=== PATIENT | male | born 1960 | race Caucasian/White ===

== ENCOUNTER 2022-01-16 11:13 | Observation (INO) ==
--- NOTE | 2022-01-14 09:21 | Anesthesiology Consultation ---
Date of Service January 14, 2022 Assessment & Plan (1) Encounter for pre-operative examination: Plan - s/p left tonsillectomy, DL with biopsy, bronchoscopy, EGD 01/10/22 [facility]: Grade 1 view with ant pressure, MAC 3, ETT 7.5. No postop issues per anesthesia progress note. - ENT 01/01/22 [place]: "...squamous cell carcinoma of lymph node...Firm fixed 3 cm level 2 node. Will need panendoscopy including left tonsillectomy. Cyst at the base of the left tonsil..." - COVID screening: Per assessment manager on 01/14/2022: Travel screen returned from [place] 12/28, no known COVID-19 positive contacts or current COVID-19 related symptoms in past 2 weeks. Pt vaccinated. Surgeon arranging preop COVID testing, scheduled 01/14/2022. Awaiting results. Chart Review Chart Review: Acceptable Risk for Surgery and Patient NOT seen in Pre Admission Testing History Surgery Operation Date: 01/16/22 12:30 Proposed Procedures p Left Radical Neck Dissection - Misty Cody MD Height/Weight Height: 5 ft 4.5 in Weight: 62.142 kg Allergies Allergy/AdvReac Type Severity Reaction Status Date / Time No Known Allergies Allergy Verified 01/14/22 08:15 Medications Home Medications Medication Instructions Recorded Confirmed Last Taken rosuvastatin 5 mg tablet (Crestor) 5 mg PO HS 07/02/21 01/14/22 01/09/22 06:00 acetaminophen 500 mg tablet 500 - 1,000 mg PO TID PRN Pain 01/14/22 01/14/22 Unknown Past Medical History Medical History Dyslipidemia Squamous cell carcinoma of lymph node Firm fixed 3 cm level 2 node Tonsillar cyst base of left tonsil Past Family History Family History Father , 70 yrs old. Stroke Mother Heart disease Other No family history of adverse response to anesthesia No family history of bleeding disorder Denies family history of Ovarian cancer Prostate cancer Myocardial infarction Breast cancer Colorectal cancer Cancer Hypertension Asthma Past Surgical History Surgical History (Updated 01/14/22 @ 09:17 by Garima Muir PA-C) History of bronchoscopy (01/10/22) Grade 1 view with ant pressure, MAC 3, ETT 7.5. No postop issues per anesthesia progress note. History of colonoscopy History of laryngoscopy (01/10/22) History of strabismus surgery right eye Hx of tonsillectomy (01/10/22) left tonsillectomy: Grade 1 view with ant pressure, MAC 3, ETT 7.5. STOP BANG Total 2 Social History Smoking Status: Never smoker Do You Dip or Chew Tobacco: No Hx Alcohol Use: Yes Alcohol type: beer alcohol intake frequency: a few times a week Hx Substance Use: No substance use type: does not use Lab Results Anesthesia Preop Results Results Anesthesia Widget: WBC 5.88 K/ul (4.8-10.8) 12/04/21 Hgb 15.0 g/dl (14.0-18.0) 12/04/21 Hct 43.4 % (40.1-51.0) 12/04/21 Plt 212 K/uL (130-400) 12/04/21 Na 137 mmol/L (136-145) 12/04/21 K 3.9 mmol/L (3.5-5.1) 12/04/21 Cl 102 mmol/L (98-107) 12/04/21 CO2 26 mmol/L (21-32) 12/04/21 BUN 16 mg/dl (6-23) 12/04/21 Creat 0.93 mg/dl (0.6-1.4) 12/04/21 Glucose Level 98 mg/dl (70-99(Fasting)) 12/04/21 Testing Electrocardiogram Date: 01/10/22 NSR, rate 80 bpm Other Testing Head/neck ultrasound 12/11/21 IMPRESSION: The patient's questioned palpable abnormality within the upper left neck appears to correspond to a 2.7 x 2.5 x 1.6 cm pathologically enlarged lymph node. Ultrasound-guided fine-needle aspiration recommended for further evaluation
--- NOTE | 2022-01-14 16:17 | History & Physical Report ---
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 For left functional neck dissection. Allergies Allergy/AdvReac Type Severity Reaction Status Date / Time No Known Allergies Allergy Verified 01/14/22 08:15 Home Medications Medication Instructions Recorded Confirmed Type rosuvastatin 5 mg tablet (Crestor) 5 mg PO HS 07/02/21 01/14/22 History acetaminophen 500 mg tablet 500 - 1,000 mg PO TID PRN Pain 01/14/22 01/14/22 History Past Med/Surg History Medical History Dyslipidemia Squamous cell carcinoma of lymph node Firm fixed 3 cm level 2 node Tonsillar cyst base of left tonsil Surgical History History of bronchoscopy (01/10/22) Grade 1 view with ant pressure, MAC 3, ETT 7.5. No postop issues per anesthesia progress note. History of colonoscopy History of laryngoscopy (01/10/22) History of strabismus surgery right eye Hx of tonsillectomy (01/10/22) left tonsillectomy: Grade 1 view with ant pressure, MAC 3, ETT 7.5. Family History Father , 70 yrs old. Stroke Mother Heart disease Other No family history of adverse response to anesthesia No family history of bleeding disorder Denies family history of Ovarian cancer Prostate cancer Myocardial infarction Breast cancer Colorectal cancer Cancer Hypertension Asthma Social History Smoking Status: Never smoker Second Hand Exposure: No; Do You Dip or Chew Tobacco: No; Tobacco Cessation Education Requested by Patient: No Hx Alcohol Use: Yes Alcohol type: beer Alcohol Intake Frequency: 4 or More x per/Week Alcohol Intake Frequency Comment: "moderation" Hx Substance Use: No Preferred Language: Bengali Communication Ability: Effective Visual Impairment: No Limitations Hearing Ability: Normal Radiator Mechanic Required: No Beliefs That Will Affect Care: None marital status: Current Living Situation: Spouse current occupational status: employed current occupation: Self employed - [employer] How many Children do You have: 0 Other Information That Helps Us Care for You: No Feels Safe at Home: Yes Safety Concerns: Feels Safe At This Time Childhood Exposure to Second-Hand Smoke: Yes Dental Care, Regularly: Yes Physical Activity Frequency: 3-4 Times per Week Seatbelt Use: always Sunscreen Use: Yes Assistive Devices: None Physical Exam Constitutional: WD/WN, vitals as above Eyes: PERRL, conjunctivae normal, anicteric sclerae ENMT: external ear and nose normal, oropharynx normal Throat: + tonsils absent Neck: 3 cm firm left neck node level 2 Respiratory: normal respiratory effort, lungs clear to auscultation Cardiovascular: RRR, no murmur, no edema PG Care Time/CCT Total # of Minutes Spent Total Time Spent with Patient: Total time spent is greater than 50% in coordination of care (as documented) at patient's floor/unit and/or counseling patient: Coding Level of Care Code None Diagnoses Squamous cell carcinoma of lymph node C77.9
[~2022-01-16 11:13] MED LIST: LR 15ML/HR IV SCH
[2022-01-16] MEDS ORDERED: ATROPINE SULFATE 0.1 MG/ML 10ML SYR IV PRN (12:07)
[2022-01-16] MEDS ORDERED: fentaNYL citrate 100 MCG/2 ML VIAL IV PRN (12:07)
[2022-01-16] MEDS ORDERED: PROMETHAZINE HCL 12.5 MG in SODIUM CHLORIDE 0.9% 50 ML IV PRN (12:07)
[2022-01-16] MEDS ORDERED: ONDANSETRON INJ 2 MG/ML 2 ML VIAL IV PRN ×2 (12:07→15:32)
[2022-01-16] MEDS ORDERED: MIDAZOLAM HCL 1 MG/ML 2ML VIAL ONE (12:08)
[2022-01-16] MEDS ORDERED: fentaNYL citrate 100 MCG/2 ML VIAL ONE ×3 (12:08→13:44)
[2022-01-16] MEDS ORDERED: ceFAZolin 2000MG 2,000 MG/15 ML SYR IV ONE ×2 (12:15→16:15)
--- NOTE | 2022-01-16 12:42 | History & Physical Bridge Note ---
Date of Service January 16, 2022 History & Physical Bridge Note I have examined the patient, reviewed the History & Physical and in the interval since the performance of the History & Physical I have noted the following changes of clinical significance: no changes noted
[2022-01-16] MEDS ORDERED: LIDOCAINE 2%/EPINEPHRINE 1:100,000 20ML ONE (12:48)
[2022-01-16] MEDS ORDERED: BACITRACIN OINT 15 GM TUBE ONE (12:48)
[2022-01-16] MEDS ORDERED: PROPOFOL IV EMULSION 10 MG/ML 20 ML VIAL IV ONE (13:44)
[2022-01-16] MEDS ORDERED: LIDOCAINE 2% MPF LOCAL 5 ML VIAL INFIL ONE (13:44)
[2022-01-16] MEDS ORDERED: NEOSTIGMINE METHYLSULFATE 1 MG/ML 10ML VIAL ONE (13:44)
[2022-01-16] MEDS ORDERED: ROCURONIUM BROMIDE 10 MG/ML 5 ML VIAL IV ONE ×3 (13:44→14:47)
[2022-01-16] MEDS ORDERED: GLYCOPYRROLATE 0.2 MG/ML VIAL ONE (13:44)
[2022-01-16] MEDS ORDERED: DEXAMETHASONE SOD INJ 4 MG/ML VIAL ONE (13:44)
[2022-01-16] MEDS ORDERED: LARYING-O-JET KIT (LTA) ONE (13:44)
[2022-01-16] MEDS ORDERED: ONDANSETRON INJ 2 MG/ML 2 ML VIAL ONE (13:44)
[2022-01-16] MEDS ORDERED: SUGAMMADEX SODIUM 200 MG/2 ML VIAL IV ONE (14:30)
[2022-01-16] MEDS ORDERED: MoRPHine SULFATE 2 MG/ML CARP IV PRN (15:32)
[2022-01-16] MEDS ORDERED: oxyCODONE/ACETAMINOPHEN 5mg/325mg TAB PO PRN (15:32)
--- NOTE | 2022-01-16 15:41 | Operative Report ---
PG Post Operative Report Pre & Post Diagnosis Operation Date: 01/16/22 12:35 Pre-Op Diagnosis: Left Metastatic Tonsillar Carcinoma; Squamous Cell Carcinoma of Lymph Node Post-Op Diagnosis: Left Metastatic Tonsillar Carcinoma; Squamous Cell Carcinoma of Lymph Node I identified the patient and participated in the time-out.: Yes Procedure Operation Date: 01/16/22 12:35 Actual Procedures p Left Radical Neck Dissection(Left) - Misty Cody MD Surgeon Misty Cody MD Silk Screen Frame Assembler Dr. Og Estimated Blood Loss 100 Findings Consistent with Post-Op Diagnosis Large posterior neck node level 2 Specimens Contents left neck Anesthesia Type General Complications None Description of Procedure He was brought to the operating room, properly identified, prepped and draped in the usual sterile manner after general endotracheal anesthesia. Left neck was prepped with ChloraPrep he was positioned for left functional neck dissection. The incision lines were marked 4 cm below the angle of the mandible curving posterior superiorly to the mastoid. Vertical limb was anterior to the external jugular vein extending inferiorly to the clavicle. Incision line was injected with 2% Xylocaine with 1 20,000 strength epinephrine. Incision was made using a #10 blade down through the skin subcutaneous layer and platysma layer. Superior skin flap was elevated initially. Then the anterior skin flap and then the posterior skin flap. Self-retaining retractors were placed. Dissection was performed around the sternocleidomastoid peeling the fascia anteriorly and then the sternocleidomastoid and retracting it posteriorly to continue d issection down to the omohyoid where the dissection was continued anteriorly following the omohyoid anterior superiorly. Posteriorly the dissection was continued along the jugular vein and the carotid elevating the fascial envelope superiorly. Anteriorly the submandibular gland was dissected free. Posterior facial vein was clamped divided and tied using silk ties x2 as it crossed the submandibular gland x2. Branch of the facial artery was clamped divided and tied using silk ties. Lingual nerve superiorly was preserved. Dissection was continued down to the digastric muscle and digastric tendon freeing the submandibular gland from anteriorly and the inferior portion of the envelope up to the upper jugular nodes. At this point blunt sharp dissection was performed around the posterior neck node the node from the sternocleidomastoid muscle and mastoid tip posteriorly and then identifying the spinal accessory nerve posteriorly and the hypoglossal nerve medially, medial to the digastric tendon. These nerves were preserved while dissecting the entire mass off of the jugular vein and also off of the skull base. In this manner the left neck content was dissected free and marked and sent to pathology. Hemostasis was controlled using the silk ties and using the cautery. Sam-Carlisle drain was placed inferiorly. Incision was closed with interrupted Vicryl sutures on the platysma layer, interrupted Vicryl sutures on the subcutaneous and subcuticular layer, and johnny on the skin layer. The drain was sewn in place. He tolerated procedure well and was taken recovery area in satisfactory condition. Dr. Og was present and assisted and also was primary surgeon for portion of the procedure, and attending greater than 50% of the procedure. I attest to the content of the Intraoperative Record and any orders documented therein. Any exceptions are noted below.
[2022-01-16] MEDS: LABETALOL HCL IV 5 MG/ML 20ML IV PRN ×3 (15:49→16:12)
--- NOTE | 2022-01-16 16:19 | Anesthesiology Progress Note ---
Date of Service January 16, 2022 Anesthesia Post Procedure Vital Signs Vital Signs: Temp Pulse Resp BP BP Pulse Ox O2 Del Method 01/16/22 16:09 77 21 159/98 H 100 Room Air 01/16/22 16:00 36.2 C L 78 20 154/87 H 100 Room Air 01/16/22 15:50 89 14 161/96 H 100 Oxymask 01/16/22 15:40 79 13 176/91 H 100 Oxymask 01/16/22 15:30 80 14 167/100 H 100 Oxymask 01/16/22 15:21 36.4 C L 80 14 166/98 H 100 Oxymask 01/16/22 11:38 37.1 C 100 H 18 142/99 H 98 Room Air O2 Flow Rate 01/16/22 16:09 01/16/22 16:00 01/16/22 15:50 3 01/16/22 15:40 3 01/16/22 15:30 6 01/16/22 15:21 6 01/16/22 11:38 Transfer of Care Handoff Completed per policy Notes Mental Status: alert / awake / arousable Patient Amnestic to Procedure: Yes Nausea / Vomiting: adequately controlled Pain: adequately controlled Airway Patency, RR, SpO2: stable & adequate BP & HR: stable & adequate Hydration State: stable & adequate Anesthetic Complications: no major complications apparent
[2022-01-16] MEDS: LACTATED RINGER'S 1,000 ML IV SCH ×2 (16:58→21:05)
[2022-01-17] MEDS: LACTATED RINGER'S 1,000 ML IV SCH (06:57)
--- NOTE | 2022-01-17 07:59 | Discharge Summary ---
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 For left functional neck dissection. Admission Exam (Per Admitting) Constitutional WD/WN, vitals as above Eyes PERRL, conjunctivae normal, anicteric sclerae ENMT external ear and nose normal, oropharynx normal Throat: + tonsils absent Respiratory normal respiratory effort, lungs clear to auscultation Cardiovascular RRR, no murmur, no edema Discharge Data Procedures Performed Operation Date: 01/16/22 12:35 Actual Procedures p Left Radical Neck Dissection(Left) - Misty Cody MD Hospital Course (1) Squamous cell carcinoma of lymph node: He underwent left functional neck dissection without complications. Did well postop weakness left corner mouth due to the incision through platysma. Otherwise nerves intact except for greater auricular nerve with numbness left ear. Minimal drainage. Drain in place. Will discharge to home. Removal of drain in my office on Thursday.
== END 2022-01-17 09:38 | disposition home or self-care (01) ==
LOC: ASU 11:13 → 3N 11:13